=== PATIENT | male | born 1990 | race Caucasian/White ===

== ENCOUNTER 2020-03-31 23:12 | Emergency (ER) | payer BC ==
[~2020-03-31] VITALS: Ht 180.3 cm; Wt 120.2 kg
--- NOTE | 2020-03-31 23:35 | NUR ---
PT AAOX4. BIBSELF C/O LT SIDE CP "TIGHTNESS" & "TROUBLE CATCHING MY BREATH" & LT ARM TINGLING. NO ACUTE DISTRESS NOTED. VSS.
[2020-04-01 00:01] VITALS: BP 122/78
--- NOTE | 2020-04-01 00:01 | NUR ---
Patient discharged to home in stable condition. Written and verbal after care instructions given. Patient verbalizes understanding of instruction and Rx. PT ambulated with steady gait. vss.
== END 2020-04-01 00:02 | disposition home or self-care (01) ==
LOC: ER 23:20
DX: R07.89 Other chest pain (principal); F17.210 Nicotine dependence, cigarettes, uncomplicated
CPT/HCPCS: 71045-TC